=== PATIENT | male | born 1985 | race Two or more races ===

== ENCOUNTER → 2020-05-29 | Emergency (ER) | payer OTHER ==
[~2020-05-29] VITALS: Ht 177.8 cm; Wt 116.1 kg
[~2020-05-29] MED LIST: CHILDREN'S ASPI81 MG; KETO10TA2 PO; NORFLEX100MG PO; RAMIPRIL5 MG; SINGULAIR 10MG10 MG
== END | disposition home or self-care (01) ==
LOC: ER 09:52
DX: R51.9 Headache, unspecified (principal); Z11.52 Encounter for screening for COVID-19

== ENCOUNTER 2020-09-05 07:13 | Emergency (ER) | payer OTHER ==
[~2020-09-05] VITALS: Ht 177.8 cm; Wt 117.9 kg
[2020-09-05] MEDS ORDERED: KETO10TA2 PO (11:39)
[2020-09-05] MEDS ORDERED: ZANAFLEX4 M1 PO (11:39)
== END 2020-09-05 12:26 | disposition home or self-care (01) ==
LOC: ER 07:13
DX: M54.5 Low back pain (principal)

== ENCOUNTER 2021-01-02 12:10 | Emergency (ER) | payer OTHER ==
[~2021-01-02] VITALS: Ht 177.8 cm; Wt 122.5 kg
[~2021-01-02 12:10] MED LIST changes: +ZANAFLEX4 M1 PO
[2021-01-02] MEDS ORDERED: VITAMIN B-121000 MC4 PO (12:19)
[2021-01-02] MEDS ORDERED: NORFLEX100MG PO (15:57)
[2021-01-02] MEDS ORDERED: KETO10TA2 PO (15:57)
== END 2021-01-02 16:10 | disposition home or self-care (01) ==
LOC: ER 12:10
DX: M54.2 Cervicalgia (principal); Z20.822 Contact with and (suspected) exposure to COVID-19

== ENCOUNTER 2023-10-29 19:51 | Emergency (ER) | payer OTHER ==
[~2023-10-29] VITALS: Ht 177.8 cm; Wt 120.2 kg
[~2023-10-29 19:51] MED LIST changes: +VITAMIN B-121000 MC4 PO
[2023-10-29] MEDS ORDERED: ACETAMINOPHEN 500 MG GEL..CAP PO ONE (20:09)
[2023-10-29 21:51] LABS: URINE BACTERIA 31.4 uL (0.0-1933); URINE EPITHELIAL CELLS 8.8 uL (0.0-38.8); URINE WBC 8.9 uL (0.0-23.2)
[2023-10-29 21:52] LABS: HEMATOCRIT 41.3 % (39.0-48.0); HEMOGLOBIN 14.4 g/dL (13-16.00); MEAN CELL VOLUME 88.9 fL (80.0-100.00); MEAN CORPUSCULAR HEMOGLOBIN 30.9 pg (27.00-32.0); MEAN CORPUSCULAR HGB CONC 34.8 g/dl (32.0-36.0); PLATELET COUNT 452 K/uL (150-450); RED BLOOD COUNT 4.65 M/uL (4.00-6.00); RED CELL DISTRIBUTION WIDTH 13.1 % (11.5-14.5)
[2023-10-29 21:59] LABS: PH,URINE 5.5 (5.0-8.0); URINE APPEARANCE Cloudy; URINE BILIRRUBIN Negative (NEGATIVE); URINE BLOOD Negative; URINE COLOR Yellow; URINE GLUCOSE Negative (NEGATIVE); URINE KETONE Trace (NEGATIVE); URINE LEUKOCYTE Negative; URINE NITRATE Negative; URINE PROTEIN Trace (NEGATIVE); URINE UROBILINOGEN 0.2 E.U./dl
[2023-10-29 22:01] LABS: URINE CAST 0.15 uL (0.0-1.40); URINE RBC 0.7 uL (0.0-20.8)
[2023-10-29 22:05] LABS: BILIRUBIN TOTAL 0.62 mg/dL (0.3-1.2); CALCIUM 9.3 mg/dL (8.5-10.1); CREATININE SERUM 1.05 mg/dL (0.70-1.30); GFR 79.92; GLOBULINA 4.4 G/DL (2.4-3.5); POTASSIUM 3.98 mEq/L (3.5-5.1); TOTAL PROTEIN 8.4 gm/dL (6.4-8.2)
[2023-10-30] MEDS ORDERED: ACETAMINOPHEN 500 MG GEL..CAP PO ONE (01:31)
[2023-10-30] MEDS ORDERED: ACETAMINOPHEN 500 MG GEL..CAP PO STA (01:31)
[2023-10-30] MEDS ORDERED: RINGERS SOLUTION,LACTATED 500 ML IV STA (01:31)
[2023-10-30] MEDS ORDERED: CEFTRIAXONE SODIUM 2,000 MG VIAL IV STA (01:32)
[2023-10-30] MEDS ORDERED: CEFTRIAXONE SODIUM 2,000 MG VIAL ONE (01:36)
== END 2023-10-30 02:50 | disposition home or self-care (01) ==
LOC: ER 19:52
PROVIDERS: Emergency Medicine
DX: K52.9 Noninfective gastroenteritis and colitis, unspecified (principal); Z20.822 Contact with and (suspected) exposure to COVID-19